=== PATIENT | female | born 1945 | race Caucasian/White ===

== ENCOUNTER 2022-10-12 08:07 | Emergency (ER) | payer MEDICARE, OTHER, SELFPAY ==
[2022-10-12 08:21] VITALS: BP 172/91; PULSE 69; RESP 16; TEMP 36; O2SAT 98; BMI 26.6
--- NOTE | 2022-10-12 09:53 | ED_ITS ---
HPI - General Adult General Time Seen by Provider: 09:53 Date Seen: 10/12/22 Chief complaint: Dizziness/Vertigo Stated complaint: Vertigo Time Seen by Provider: 10/12/22 08:10 Source: patient and family Mode of arrival: wheelchair Limitations: physical limitation History of Present Illness HPI narrative: Patient is a 77-year-old female has a history of chronic vertigo, she has meclizine, Antivert, Valium at home. She forgot these in [place], she recently arrived to [place]. She developed vertigo and typical vertiginous symptoms over the last few hours. She has no chest pain, no headache, no visual problem, no facial asymmetry, no word-finding inability, this is a typical vertiginous symptom for her Aaron maneuvers of helped in the past. She has had no fever chills COVID symptoms. As mention no chest pain or is a rhythm issues with her heart. Related Data Home Medications Medication Instructions Recorded Confirmed atorvastatin 20 mg tablet 20 mg PO DAILY 10/12/22 10/12/22 diltiazem HCl 120 mg 120 mg PO DAILY 10/12/22 10/12/22 capsule,extended release 24 hr empagliflozin 10 mg tablet 10 mg PO DAILY 10/12/22 10/12/22 (Jardiance) flecainide 50 mg tablet 50 mg PO Q12H 10/12/22 10/12/22 hydrochlorothiazide 25 mg tablet 25 mg PO DAILY 10/12/22 10/12/22 latanoprost 0.005 % eye drops 1 drp ophthalmic (eye) DAILY 10/12/22 10/12/22 loratadine 10 mg tablet (Allergy 10 mg PO DAILY 10/12/22 10/12/22 Relief (loratadine)) losartan 100 mg tablet 100 mg PO DAILY 10/12/22 10/12/22 metformin 1,000 mg tablet 1,000 mg PO BID 10/12/22 10/12/22 montelukast 10 mg tablet 10 mg PO DAILY 10/12/22 10/12/22 propranolol 80 mg capsule,24 80 mg PO DAILY 10/12/22 10/12/22 hr,extended release rivaroxaban 20 mg tablet (Xarelto) 20 mg PO DAILY 10/12/22 10/12/22 Previous Rx's Medication Instructions Recorded lorazepam 0.5 mg tablet (Ativan) 0.25 mg PO Q8H PRN #10 tabs 10/12/22 meclizine 25 mg chewable tablet 25 mg PO BID #10 tabs 10/12/22 (Antivert) Allergies Allergy/AdvReac Type Severity Reaction Status Date / Time No Known Drug Allergies Allergy Verified 10/12/22 08:29 Review of Systems Status of ROS: Reports: 6 or more systems reviewed and unremarkable except as noted in History and below Exam Narrative: Exam Narrative: Objective: Patient's vital signs show slightly elevated blood pressure. Alert orient x3, very pleasant, noncyanotic, she has a couple beats of nystagmus to the left primarily with lateral gaze. She reports the room is spinning as it typically does with her vertigo Neck is supple nontender chest clear Heart rhythm regular Abdomen benign soft Extremities no focal findings good strength sensation upper lower extremities Attempted to proceed with an Aaron maneuver but the patient got very nauseated with even lateral bending of with lateral rotation of the head to the right. So this was stopped. Const: Vital Signs, click to edit/add: Vital Signs - 24 hr 10/12/22 08:21 10/12/22 10:20 Temperature 96.8 F L Pulse Rate [Right Pulse Oximeter] 69 71 Respiratory Rate 16 18 Blood Pressure [Ri ght Upper Arm] 172/91 H 188/80 H Pulse Oximetry 98 96 Oxygen Delivery Me thod Room Air Room Air Course Vital Signs Vital signs: Initial Vital Signs Temperature 96.8 F L 10/12/22 08:21 Temperature Source Temporal Artery Scan 10/12/22 08:21 Pulse Rate 69 10/12/22 08:21 Pulse Rhythm 10/12/22 08:21 Respiratory Rate 16 10/12/22 08:21 Blood Pressure 172/91 H 10/12/22 08:21 Blood Pressure Mean 118 10/12/22 08:21 Blood Pressure Position Sitting 10/12/22 08:21 Pulse Oximetry 98 10/12/22 08:21 Oxygen Delivery Method 10/12/22 08:21 Vital Signs Temperature 96.8 F L 10/12/22 08:21 Pulse Rate 69 10/12/22 08:21 Respiratory Rate 16 10/12/22 08:21 Blood Pressure 172/91 H 10/12/22 08:21 Pulse Oximetry 98 10/12/22 08:21 Oxygen Delivery Method 10/12/22 08:21 Temperature 96.8 F L 10/12/22 08:21 Pulse Rate 71 10/12/22 10:20 Respiratory Rate 18 10/12/22 10:20 Blood Pressure 188/80 H 10/12/22 10:20 Pulse Oximetry 96 10/12/22 10:20 Oxygen Delivery Method 10/12/22 10:20 Medical Decision Making MDM Narrative Medical decision making narrative: Patient has a longstanding history of vertiginous symptoms, this has been very common for her. She typically responds to fluids and some type of benzodiazepine. I think now trying the IV fluid, Ativan IV, Zofran, check laboratory studies and an EKG would be reasonable. Given her longstanding history do not think this constitutes stroke or other intracranial pathology that significa and have discussed this with family and they wished to proceed as above. I do not think advanced imaging at this point is going to be helpful given her long history of this same type of vertiginous symptom. Addendum: The patient had a telemetry strip done which is showing sinus rhythm, she is unable to get any good reading as her somewhat artifact with her deep brain stimulator she has for tremor. Patient feels markedly better after the Ativan and fluid, her laboratory studies look reassuring her glucose slightly elevated nonfasting at 2:06 a.m. CRP is negative. Will discharge her with Ativan and Antivert to take trial of these at home, and she has used these before home. Would use the Antivert and then follow with Ativan a few hours later if it is not fully working for her dizziness this. This has been a chronic chronic problem for her, and is markedly better at this time. Return as needed Lab Data Labs: Lab Results 10/12/22 10/12/22 Range/Units 10:10 10:10 WBC 11.20 H (4.50-11.00) K/uL RBC 4.89 (4.00-5.20) m/uL Hgb 14.9 (12.0-16.0) gm/dL Hct 43.2 (33.0-51.0) % MCV 88 (80-100) fL MCH 31 (26-34) pg MCHC 35 (32-36) gm/dL RDW Coeff of Alejandra 11.9 (11.5-15.5) % Plt Count 323 (140-440) K/uL Neut % (Auto) 78.2 H (42.0-72.0) % Lymph % (Auto) 14.7 L (20-44) % [place] % (Auto) 5.5 (0.0-11.0) % Eos % (Auto) 0.9 (0.0-7.0) % Baso % (Auto) 0.5 (0.0-3.0) % Neut # (Auto) 8.80 H (1.7-7.0) K/uL Lymph # (Auto) 1.60 (0.90-2.90) K/uL [place] # (Auto) 0.60 (0.00-0.90) K/UL Eos # (Auto) 0.10 (0.00-0.50) K/uL Baso # (Auto) 0.10 (0.00-0.30) K/uL Sodium 139 (135-149) mmol/L Potassium 4.0 (3.6-5.1) mmol/L Chloride 101 (96-114) mmol/L Carbon Dioxide 24 (20-32) mmol/L BUN 17 (7-30) mg/dL Creatinine 0.7 (0.5-1.5) mg/dL Estimated Creat Clear 40.21 Estimated GFR 90 ml/min Glucose 206 H (60-115) mg/dL Calcium 9.8 (8.4-10.6) mg/dL C-Reactive Protein < 0.5 L (0.5-1.0) mg/dL Discharge Plan Discharge Clinical Impression: Vertigo Patient Disposition: Home w/ Parent or Adult Condition: Improved Instructions: Vertigo (ED) Additional Instructions: Rest, light activity, fluids, Ativan and Antivert at home as needed, careful not to use both together at the same time as they are sedating. Would use 1 a couple hours after the 1st 1 if it is not working, but the Ativan alone seemed to work pretty well here, she has used Antivert successfully at home I would try that 1st and then the Ativan if needed several hours later. Return to ED sooner problems or concerns Activity Level: Light activity Discharge Diet: Regular Prescriptions: New meclizine [Antivert] 25 mg tablet,chewable 25 mg PO BID Qty: 10 0RF lorazepam [Ativan] 0.5 mg tablet 0.25 mg PO Q8H PRNQty: 10 0RF No Action flecainide 50 mg tablet 50 mg PO Q12H diltiazem HCl 120 mg capsule,extended release 24hr 120 mg PO DAILY Xarelto 20 mg tablet 20 mg PO DAILY Rx Instructions: must administer with evening meal metformin 1,000 mg tablet 1,000 mg PO BID atorvastatin 20 mg tablet 20 mg PO DAILY montelukast 10 mg tablet 10 mg PO DAILY losartan 100 mg tablet 100 mg PO DAILY loratadine [Allergy Relief (loratadine)] 10 mg tablet 10 mg PO DAILY hydrochlorothiazide 25 mg tablet 25 mg PO DAILY Jardiance 10 mg tablet 10 mg PO DAILY propranolol 80 mg capsule,extended release 24hr 80 mg PO DAILY latanoprost 0.005 % drops 1 drp ophthalmic (eye) DAILY Stand Alone Forms: [facility] Info Instructions
[2022-10-12 10:20] VITALS: BP 188/80; PULSE 71; RESP 18; O2SAT 96
[2022-10-12 10:25] LABS: Basophils Percent Auto 0.5 % (0.0-3.0); Eosinophils Percent Auto 0.9 % (0.0-7.0); Hematocrit 43.2 % (33.0-51.0); Hemoglobin* 14.9 gm/dL (12.0-16.0); Immature Granulocytes Pct Auto 0.2 %; Lymphocytes Percent Auto 14.7 % (20-44); Mean Corpuscular HGB Conc 35 gm/dL (32-36); Mean Corpuscular Hemoglobin 31 pg (26-34); Mean Corpuscular Volume 88 fL (80-100); Monocytes Percent Auto 5.5 % (0.0-11.0); Neutrophils Percent Auto 78.2 % (42.0-72.0); Platelet Count* 323 K/uL (140-440); RDW Coefficient of Variation % 11.9 % (11.5-15.5); Red Blood Count 4.89 m/uL (4.00-5.20)
[2022-10-12] MEDS: 0.9 % SODIUM CHLORIDE 1000 ml 1,000 ML 6000 ML IV (10:28)
[2022-10-12] MEDS: ONDANSETRON 2 MG/ML inj 4 MG IVP (10:28)
[2022-10-12] MEDS: LORazepam 2 MG/ML inj 1 MG IVP (10:28)
[2022-10-12 10:31] LABS: Slide Review Reflex No
[2022-10-12 10:40] LABS: Chloride* 101 mmol/L (96-114); Sodium* 139 mmol/L (135-149)
[2022-10-12 10:43] LABS: Blood Urea Nitrogen* 17 mg/dL (7-30); Carbon Dioxide* 24 mmol/L (20-32); Creatinine* 0.7 mg/dL (0.5-1.5); Est. Creatinine Clearance* 40.21; Estimated Glomerular Filt Rate 90 ml/min
[2022-10-12 10:44] LABS: Calcium* 9.8 mg/dL (8.4-10.6); Glucose* 206 mg/dL (60-115)
[2022-10-12 10:51] LABS: C Reactive Protein* < 0.5 mg/dL (0.5-1.0)
== END 2022-10-12 12:24 | disposition home or self-care (01) ==
PROVIDERS: Emergency Provider Family Medicine
DX: R42 Dizziness and giddiness (principal)
CPT/HCPCS: 36415; 80048; 85025; 86140; 96374; 96375; 99284; 99285; J2060; J2405; J7030